=== PATIENT | female | born 1970 | race Caucasian/White ===

== ENCOUNTER 2016-12-24 12:20 | Emergency (ER) | payer BC ==
[~2016-12-24] VITALS: Ht 152.4 cm; Wt 68.0 kg
[~2016-12-24 12:20] MED LIST: CLIN1CAP5 PO; NAPR500 PO
[2016-12-24 12:24] VITALS: BP 146/93; PULSE 102; RESP 20; TEMP 98.5; O2SAT 98
[2016-12-24] MEDS ORDERED: AMOX500T PO (12:57)
[2016-12-24] MEDS ORDERED: CORT1SOL RIGHT EAR (12:57)
--- NOTE | 2016-12-24 12:57 | PD ---
HPI Chief Complaint: ENT Complaint Time Seen by Provider: 12:36 Travel History International Travel<30 days: No Contact w/Intl Traveler<30days: No Traveled to known affect area: No History of Present Illness HPI This 46-year-old female has multiple complaints. She's had a lump on the right side of her jaw for a while. She had a tooth infection took an antibiotic but hasn't completely resolved. She's been having some sinus congestion. She has a history of sinus infection and has had 2 surgeries on his sinuses. He also has some numbness in her hands. Both sides are affected and the numbness is somewhat intermittent and comes and goes. It can worsen last 2 weeks. She is on no medications. She has no history of thyroid disease. She has a history of cholecystectomy appendectomy and hysterectomy. He is having some pain in her right ear. She will is to wear headphones at work [employer] Past Medical History Cardiovascular Problems: Yes Diminished Hearing: No Tetanus Vaccination: Unknown Influenza Vaccination: No ?: Not Past Surgical History Appendectomy: Yes Cholecystectomy: Yes Hysterectomy: Yes Other Surgery: Yes (Salivary Stone removed, Deviated Septum) Social History Alcohol Use: No Tobacco Use: Yes (09/14 PPD) Substance Use: No Allergies-Medications (Allergen,Severity, Reaction): Coded Allergies: Beta Blockers (Verified Allergy, Intermediate, HALLUCINATIONS, 12/24/16) Celebrex (Verified Allergy, Intermediate, LEFT WRIST SWELLS, 12/24/16) Reported Meds & Prescriptions Reported Meds & Active Scripts Active Naprosyn (Naproxen) 500 Mg Tab 500 Mg PO Q12HR PRN Clindamycin (Clindamycin HCl) 150 Mg Cap 2 Tab PO Q6H 10 Days Review of Systems General / Constitutional: No: Fever, Chills Eyes: No: Diploplia HENT: Positive: Rhinitis, Earache Cardiovascular: No: Chest Pain or Discomfort, Palpitations Respiratory: No: Cough, Shortness of Breath Gastrointestinal: No: Vomiting, Diarrhea Genitourinary: No: Urgency, Frequency Musculoskeletal: No: Myalgias Psychiatric: No: Anxiety Hematologic/Lymphatic: No: Easy Bruising Physical Exam Narrative GENERAL: Well-developed female SKIN: Focused skin assessment warm/dry. HEAD: Atraumatic. Normocephalic. EYES: Pupils equal and round. No scleral icterus. No injection or drainage. ENT: No nasal bleeding or discharge. Mucous membranes pink and moist. Multiple teeth are missing. The first molar is carious and the adjacent gum is swollen. There is erythema of the nasal turbinates. There is erythema of the right ear canal small amount of exudate NECK: Trachea midline. No JVD. CARDIOVASCULAR: Regular rate and rhythm. No murmur appreciated. RESPIRATORY: No accessory muscle use. Clear to auscultation. Breath sounds equal bilaterally. GASTROINTESTINAL: Abdomen soft, non-tender, nondistended. Hepatic and splenic margins not palpable. MUSCULOSKELETAL: No obvious deformities. No clubbing. No cyanosis. No edema. NEUROLOGICAL: Awake and alert. No obvious cranial nerve deficits. Motor grossly within normal limits. Normal speech. Some diminished sensation on the left arm compared to the right. PSYCHIATRIC: Appropriate mood and affect; insight and judgment normal. Data Data Last Documented VS Vital Signs Date Time Temp Pulse Resp B/P Pulse Ox O2 Delivery O2 Flow Rate FiO2 12/24/16 12:24 98.5 102 20 146/93 98 MDM Medical Decision Making Medical Screen Exam Complete: Yes Emergency Medical Condition: Yes Medical Record Reviewed: Yes Differential Diagnosis Differential includes radiculopathy, neuropathy, sinusitis, Narrative Course Patient be placed on amoxicillin and Cortisporin for her ear infection Diagnosis Primary Impression: Acute sinusitis Qualified Code: J01.01 - Acute recurrent maxillary sinusitis Additional Impression: Right otitis externa Qualified Code: H60.501 - Acute otitis externa of right ear, unspecified type Scripts Rzesnoaq-Iutqvkhej-DI Otic Drops (Cortisporin HC Otic Drops)3.5-10,000-1 Mg- Units-% Soln4 Drop RIGHT EAR QID #1 BOTTLE Ref 0 Prov:Casa Robert MD 12/24/16 Amoxicillin 500 Mg [id number] Mg PO TID #30 TAB Ref 0 Prov:Casa Robert MD 12/24/16 Disposition: DISCHARGE HOME Condition: Stable Casa Robert MD Dec 24, 2016 12:57
== END 2016-12-24 13:22 | disposition home or self-care (01) ==
LOC: PHED 12:20
DX: J01.90 Acute sinusitis, unspecified (principal); H60.91 Unspecified otitis externa, right ear
CPT/HCPCS: 99283

== ENCOUNTER 2017-01-15 19:38 | Emergency (ER) | payer BC ==
[~2017-01-15] VITALS: Ht 152.4 cm; Wt 70.1 kg
[~2017-01-15 19:38] MED LIST changes: +AMOX500T PO; +CORT1SOL RIGHT EAR
[2017-01-15 19:42] VITALS: BP 162/105; PULSE 109; RESP 14; TEMP 98.4; O2SAT 100
[2017-01-15 20:45] VITALS: BP 163/103; PULSE 98; RESP 16; O2SAT 97
--- NOTE | 2017-01-15 20:49 | PD ---
HPI Chief Complaint: ENT Complaint Time Seen by Provider: 20:20 Travel History International Travel<30 days: No Contact w/Intl Traveler<30days: No Traveled to known affect area: No History of Present Illness HPI 46-year-old female presents to the emergency room for evaluation of right ear pain for the past one month. Patient was seen one month ago at onset symptoms and given Cipro otic drops as well as oral amoxicillin. She states upon finishing her antibiotics, she felt improvement but then her symptoms worsened. She denies dental pain. Ear pain radiates into her face. She has been taking ibuprofen for her pain. Patient also reports associated left ear pain which at one point felt like a pressure until it popped and a mild amount of blood came out. She reports chills but has not taken her temperature. No chronic medical conditions or daily medications. Patient also reports chronic bilateral wrist pain starting to radiate up to her elbows. She never followed up with a physician after her last visit to the ER. PFSH Past Medical History Medical History: Denies Significant Hx Cardiovascular Problems: Yes Diminished Hearing: No Tetanus Vaccination: > 5 Years Influenza Vaccination: No ?: Not Menopausal: Yes Past Surgical History Appendectomy: Yes Cholecystectomy: Yes Hysterectomy: Yes Other Surgery: Yes (Sinus X's 2, parotid gland SX) Social History Alcohol Use: No Tobacco Use: Yes (/2 PPD) Substance Use: No Allergies-Medications (Allergen,Severity, Reaction): Coded Allergies: Beta Blockers (Verified Allergy, Intermediate, HALLUCINATIONS, 01/15/17) Celebrex (Verified Allergy, Intermediate, LEFT WRIST SWELLS, 01/15/17) Reported Meds & Prescriptions Reported Meds & Active Scripts Active Augmentin (Amoxicillin-Clavulanate) 875-125 mg Tab 875 Mg PO BID 7 Days not for use in CrCl <30 ml/min. Review of Systems Except as stated in HPI: all other systems reviewed are Neg Physical Exam Narrative GENERAL: Well-nourished, well-developed female in no acute distress. Afebrile. Ambulatory. SKIN: Warm and dry. HEAD: Normocephalic. ENT: Mucosa pink and moist. No erythema or exudates. No uvular edema. No uvular , palatal, or tonsillar deviation. Airway patent. Nasal turbinates appear normal without nasal blood, purulent drainage or septal hematoma. EYES: No scleral icterus. No injection or drainage. DENTAL: Moderate decay throughout. EARS: Bilateral pinnae and external canals appear within normal limits. Left ear canal has dried blood. Bilateral tympanic membranes without erythema or perforation. Right tympanic membrane is dull. NECK: Supple, trachea midline. No JVD or lymphadenopathy. CARDIOVASCULAR: Regular rate and rhythm without murmurs, gallops, or rubs. RESPIRATORY: Breath sounds equal bilaterally. No accessory muscle use. Data Data Last Documented VS Vital Signs Date Time Temp Pulse Resp B/P Pulse Ox O2 Delivery O2 Flow Rate FiO2 01/15/17 20:45 98 16 163/103 97 Room Air 01/15/17 19:42 98.4 MDM Medical Decision Making Medical Screen Exam Complete: Yes Emergency Medical Condition: Yes Medical Record Reviewed: Yes Differential Diagnosis Otitis media versus otitis externa versus eustachian tube dysfunction versus dentalgia Narrative Course 46-year-old female presents to the emergency room for evaluation of right-sided ear pain for the past one month. Pain initially improved antibiotic therapy but worsened again 2 weeks ago. Pain is severe and radiates into her face. Denies any drainage from the right ear. She reports left ear pain last week with associated bloody drainage but that has since resolved. No objective fevers. Physical exam reveals scarring and dullness of the right tympanic membrane without perforation or evidence of infection. Left tympanic membrane is intact without evidence of infection. There is dried blood in the ear canal. Dentition is poor throughout with moderate decay. Patient was recently treated with amoxicillin and Cipro otic for sinusitis/ear infection. She will be given Augmentin. Patient was encouraged to follow up with a primary care physician and/or ENT and provided with information for the [facility]. Diagnosis Primary Impression: Otitis media Qualified Code: H66.016 - Recurrent acute suppurative otitis media with spontaneous rupture of both tympanic membranes Referrals: Primary Care Physician Patient Instructions: General Instructions, Otitis Media (ED) Additional Instructions: Rest and drink plenty of fluids. Take Augmentin as directed, until gone. Take ibuprofen with food as directed, as needed for pain. Follow-up with a primary care physician or ENT physician. Return to the emergency room for worsening symptoms. Med/Other Pt SpecificInfo: Prescription(s) given Scripts Amoxicillin-Clavulanate (Augmentin)875-125 mg [id number] Mg PO BID 7 Days Ref 0 not for use in CrCl <30 ml/min. Prov:Casa Robert MD 01/15/17 Disposition: 01 DISCHARGE HOME Condition: Stable Heather Sargent January 15, 2017 20:49
[2017-01-15] MEDS ORDERED: AUGM875T PO (20:50)
== END 2017-01-15 21:00 | disposition home or self-care (01) ==
LOC: PHEFT 19:38
DX: H66.91 Otitis media, unspecified, right ear (principal); F17.210 Nicotine dependence, cigarettes, uncomplicated
CPT/HCPCS: 99282

== ENCOUNTER 2017-05-29 13:54 | Emergency (ER) | payer SELFPAY ==
[~2017-05-29] VITALS: Ht 152.4 cm; Wt 66.0 kg
[~2017-05-29 13:54] MED LIST changes: -AMOX500T PO; +AUGM875T PO; -CLIN1CAP5 PO; -CORT1SOL RIGHT EAR; -NAPR500 PO
[2017-05-29 14:10] VITALS: BP 167/109; PULSE 106; RESP 16; TEMP 98.8; O2SAT 99
[2017-05-29] MEDS ORDERED: GABA300C5 PO (16:40)
[2017-05-29] MEDS ORDERED: OMEP40CA2 PO (16:40)
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
[2017-05-29] MEDS ORDERED: predniSONE 20 MG TAB PO ONE (17:00)
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
[2017-05-29] MEDS ORDERED: ACETAMINOPHEN/HYDROcodone 325 MG/5 MG TAB PO ONE (18:00)
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
[2017-05-29] MEDS ORDERED: TRAM50TA PO (18:35)
[2017-05-29] MEDS ORDERED: PRED20 PO (18:35)
[2017-05-29] MEDS ORDERED: CYCL1TAB29 PO (18:35)
[2017-05-29 19:17] VITALS: RESP 18
== END 2017-05-29 19:35 | disposition home or self-care (01) ==
LOC: PHED 13:54 → PHEFT 19:35
DX: S16.1XXA Strain of muscle, fascia and tendon at neck level, initial encounter (principal); X58.XXXA Exposure to other specified factors, initial encounter; Y93.11 Activity, swimming; Y92.832 Beach as the place of occurrence of the external cause
CPT/HCPCS: 72040; 72125; 99284; J7512

== ENCOUNTER 2018-02-24 17:25 | Emergency (ER) | payer SELFPAY ==
[~2018-02-24 17:25] MED LIST changes: -AUGM875T PO; +CYCL10TA PO; +GABA300C5 PO; +OMEP40CA2 PO; +PRED20 PO; +TRAM50TA PO
[2018-02-24 17:58] VITALS: BP 112/74; PULSE 107; RESP 17; TEMP 98.8; O2SAT 97
[2018-02-24] MEDS ORDERED: SODIUM CHLORIDE 0.9% FLUSH 10 ML FLUSH IVF PRN (18:45)
[2018-02-24 18:56] VITALS: PULSE 78; RESP 18; O2SAT 96
[2018-02-24] MEDS ORDERED: methylPREDNISolone SOD SUCC 125 MG/2 ML VIAL IV PUSH ONE (19:15)
--- NOTE | 2018-02-24 19:24 | RADRPT ---
EXAM DATE: 02/24/2018 7:16 PM EDT AGE/SEX: 47 years / Female INDICATIONS: Short of breath and chest pain. CLINICAL DATA: This is the patient's initial encounter. Patient reports that signs and symptoms have been present for 2 weeks and indicates a pain score of 6/10. MEDICAL/SURGICAL HISTORY: Asthma. Cholecystectomy. Appendectomy. Hysterectomy. Salivary glan d. Sinus. COMPARISON: No prior exams available for comparison. FINDINGS: PA and lateral views of the chest demonstrate the lungs to be symmetrically aerated without evidence of mass, infiltrate or effusion. The cardiomediastinal contours are unremarkable. Osseous structures are intact. CONCLUSION: No acute cardiopulmonary disease. Electronically signed by: Ramírez Gottlieb MD 02/24/2018 7:22 PM EDT
--- NOTE | 2018-02-24 19:27 | PD ---
HPI Chief Complaint: Chest Pain Time Seen by Provider: 18:16 Travel History International Travel<30 days: No Contact w/Intl Traveler<30days: No Traveled to known affect area: No History of Present Illness HPI 47-year-old female with PMH of asthma presents the ED for evaluation of 10 day history of central chest tightness, described as aching, radiating across the chest. Accompanied by shortness of breath, wheezing. Patient denies associated diaphoresis, nausea or vomiting. Patient is a current smoker. She endorses chronic, nonproductive cough. She denies recent overuse or injury to the area. She denies fever, chills, abdominal pain, dysuria. She treated at home with an inhaler with no improvement of symptoms. Denies recent period of immobility, oral contraception use. Denies history of PE, DVT. Endorses familial history of AK in her mother in early 50s. PFSH Past Medical History Cardiovascular Problems: Yes Diminished Hearing: No GERD: Yes Musculoskeletal: Yes Respiratory: Yes (ASTHMA) Immunizations Current: Yes ?: Not Menopausal: Yes Past Surgical History Appendectomy: Yes Cholecystectomy: Yes Hysterectomy: Yes Other Surgery: Yes (Sinus X's 2, parotid gland SX) Social History Alcohol Use: No Tobacco Use: Yes (1 PPD) Substance Use: No Allergies-Medications (Allergen,Severity, Reaction): Coded Allergies: acebutolol (Unverified Allergy, Intermediate, HALLUCINATIONS, 05/29/17) atenolol (Unverified Allergy, Intermediate, HALLUCINATIONS, 05/29/17) betaxolol (Unverified Allergy, Intermediate, HALLUCINATIONS, 05/29/17) carvedilol (Unverified Allergy, Intermediate, HALLUCINATIONS, 05/29/17) celecoxib (Unverified Allergy, Intermediate, LEFT WRIST SWELLS, 05/29/17) labetalol (Unverified Allergy, Intermediate, HALLUCINATIONS, 05/29/17) metoprolol (Unverified Allergy, Intermediate, HALLUCINATIONS, 05/29/17) nebivolol (Unverified Allergy, Intermediate, HALLUCINATIONS, 05/29/17) pindolol (Unverified Allergy, Intermediate, HALLUCINATIONS, 05/29/17) propranolol (Unverified Allergy, Intermediate, HALLUCINATIONS, 05/29/17) sotalol (Unverified Allergy, Intermediate, HALLUCINATIONS, 05/29/17) timolol (Unverified Allergy, Intermediate, HALLUCINATIONS, 05/29/17) Reported Meds & Prescriptions Reported Meds & Active Scripts Active Nebulizer Kit/Tubing/Mout (N/A) 1 Kit Kit Kit .XX DIRECTED Albuterol Neb (Albuterol Sulfate) 2.5 Mg/3 Ml Neb 2.5 Mg NEB Q6HR ALT NEB PRN Proair Hfa 8.5 GM Inh (Albuterol Sulfate) 90 Mcg/Act Aer 2 Puff INH Q4-6H PRN 108 mcg/actuation Prednisone 20 Mg Tab 20 Mg PO ONCE 5 Days Flexeril (Cyclobenzaprine HCl) 10 Mg Tab 10 Mg PO TID Reported Omeprazole 40 Mg Cap 40 Mg PO DAILY Gabapentin 300 Mg Cap 300 Mg PO TID Review of Systems Except as stated in HPI: all other systems reviewed are Neg Physical Exam Narrative GENERAL: Well-nourished, well-developed white female no acute distress. SKIN: Focused skin assessment warm/dry. HEAD: Normocephalic. EYES: No scleral icterus. No injection or drainage. NECK: Supple, trachea midline. No JVD or lymphadenopathy. CARDIOVASCULAR: Regular rate and rhythm without murmurs, gallops, or rubs. CHEST: Nontender throughout without deformity or crepitus. No retractions. RESPIRATORY: Breath sounds tight and wheezy equal bilaterally. No accessory muscle use. GASTROINTESTINAL: Abdomen soft, non-tender, nondistended. MUSCULOSKELETAL: No cyanosis, or edema. BACK: Nontender without obvious deformity. No CVA tenderness. Data Data Last Documented VS Vital Signs Date Time Temp Pulse Resp B/P (MAP) Pulse Ox O2 Delivery O2 Flow Rate FiO2 02/24/18 18:56 78 18 96 02/24/18 18:20 Room Air 02/24/18 17:58 98.8 112/74 (87) Orders Orders Electrocardiogram (02/24/18 ) Complete Blood Count With Diff (02/24/18 18:33) Comprehensive Metabolic Panel (02/24/18 18:33) D-Dimer (02/24/18 18:33) Magnesium (Mg) (02/24/18 18:33) Ckmb (Isoenzyme) Profile (02/24/18 18:33) Troponin I (02/24/18 18:33) Urinalysis - C+S If Indicated (02/24/18 18:33) Iv Access Insert/Monitor (02/24/18 18:33) Ecg Monitoring (02/24/18 18:33) Oximetry (02/24/18 18:33) Chest, Pa & Lat (02/24/18 18:33) Sodium Chloride 0.9% Flush (Ns Flush) (02/24/18 18:45) Ed Urine Pregnancytest Poc (02/24/18 18:33) Methylprednisolone So Succ Inj (Solumedr (02/24/18 19:15) Albuterol-Ipratropium Neb (Duoneb Neb) (02/24/18 19:15) Ed Discharge Order (02/24/18 21:20) Labs Laboratory Tests Test 02/24/18 19:35 02/24/18 19:54 White Blood Count 7.8 TH/MM3 Red Blood Count 4.67 MIL/MM3 Hemoglobin 14.6 GM/DL Hematocrit 42.8 % Mean Corpuscular Volume 91.7 FL Mean Corpuscular Hemoglobin 31.2 PG Mean Corpuscular Hemoglobin Concent 34.0 % Red Cell Distribution Width 15.9 % Platelet Count 241 TH/MM3 Mean Platelet Volume 8.8 FL Neutrophils (%) (Auto) 52.0 % Lymphocytes (%) (Auto) 29.0 % Monocytes (%) (Auto) 7.4 % Eosinophils (%) (Auto) 8.7 % Basophils (%) (Auto) 2.9 % Neutrophils # (Auto) 4.1 TH/MM3 Lymphocytes # (Auto) 2.3 TH/MM3 Monocytes # (Auto) 0.6 TH/MM3 Eosinophils # (Auto) 0.7 TH/MM3 Basophils # (Auto) 0.2 TH/MM3 CBC Comment DIFF FINAL Differential Comment D-Dimer Quantitative (PE/DVT) 0.23 MG/L FEU Blood Urea Nitrogen 20 MG/DL Creatinine 0.71 MG/DL Random Glucose 85 MG/DL Total Protein 7.0 GM/DL Albumin 4.0 GM/DL Calcium Level 8.6 MG/DL Magnesium Level 1.8 MG/DL Alkaline Phosphatase 59 U/L Aspartate Amino Transf (AST/SGOT) 8 U/L Alanine Aminotransferase (ALT/SGPT) 18 U/L Total Bilirubin 0.2 MG/DL Sodium Level 143 MEQ/L Potassium Level 3.7 MEQ/L Chloride Level 108 MEQ/L Carbon Dioxide Level 21.6 MEQ/L Anion Gap 13 MEQ/L Estimat Glomerular Filtration Rate 89 ML/MIN Total Creatine Kinase 56 U/L Troponin I LESS THAN 0.02 NG/ML Urine Color YELLOW Urine Turbidity CLEAR Urine pH 5.0 Urine Specific [place] 1.026 Urine Protein 30 mg/dL Urine Glucose (UA) NEG mg/dL Urine Ketones 20 mg/dL Urine Occult Blood NEG Urine Nitrite NEG Urine Bilirubin NEG Urine Leukocyte Esterase NEG Urine RBC 4 /hpf Urine WBC 2 /hpf Urine Squamous Epithelial Cells 4 /hpf Urine Calcium Oxalate Crystals OCC /hpf Microscopic Urinalysis Comment CULT NOT INDICATED MDM Medical Decision Making Medical Screen Exam Complete: Yes Emergency Medical Condition: Yes Differential Diagnosis Asthma exacerbation versus pneumonia versus Narrative Course 47-year-old female with PMH of asthma presents the ED for evaluation of 10 day history of central chest tightness, described as aching, radiating across the chest. Accompanied by shortness of breath, wheezing. Patient is a current smoker. Denies recent period of immobility, oral contraception use. Denies history of PE, DVT. Endorses familial history of AK in her mother in early 50s. Vitals reviewed. O2 sats 97% on room air, respiratory rate 17, pulse 107 on arrival. Pulse improves in the exam room. On exam this is a nontoxic- appearing white female, no extra work of breathing. No reproducible chest pain. No appreciable M/R/G. Breath sounds are tight and wheezy bilaterally. IV was established. Patient was administered IV Solu-Medrol and duo nebs 3. EKG rate 90, sinus rhythm. TN interval 156, QRS 76, QTc 410 ms. Normal axis. No acute ST changes. Reviewed by Dr. Sen. CXR: No acute cardiopulmonary disease. Cardiac enzymes negative 1. CBC unremarkable. CMP without concerning abnormalities. No culture indicated of the UA. D-dimer 0.23. Low risk for PE via Well's criteria. I discussed the patient, evaluation and care plan with Dr. Sen who is in agreement. On recheck patient reports improvement of her breathing symptoms. I offered the patient observation admission in the chest pain center. She declines. I explained that the patient has several risk factors and that she should seek outpatient cardiac evaluation. She is prescribed a short course of steroids, refill for her pro-air inhaler, albuterol treatments and a nebulizer. She is instructed to follow-up with the primary care and cardiology. She indicated understanding of the instructions. She is agreeable to care plan. Patient is stable and discharged home. Diagnosis Primary Impression: Asthma exacerbation Qualified Codes: J45.901 - Unspecified asthma with (acute) exacerbation Referrals: [facility] Additional Instructions: Rest, hydrate. Resume normal, gentle activities as tolerated. Continue with daily antihistamines as previously prescribed. Begin steroids tomorrow and take them as prescribed until every dose is gone. Rescue inhaler as needed for shortness of breath. Alternatively you may use the nebulizer as prescribed. As we discussed you have risk factors for cardiac disease. Follow-up with the work force advisor on outpatient basis for further evaluation. Follow-up with the [facility] clinic to establish primary care. Return to the ED for worsening symptoms or any urgent or emergent medical condition. Med/Other Pt SpecificInfo: Prescription(s) given Scripts Nebulizer Kit/Tubing/Mout (Nebulizer Kit/Tubing/Mout) 1 Kit Kit KIT .XX DIRECTED for Breathing Treatment, #1 0 Refills Prov: Phill Vigil DO 02/24/18 Albuterol Neb (Albuterol Neb) 2.5 Mg/3 Ml Neb 2.5 MG NEB Q6HR ALT NEB Y for SHORTNESS OF BREATH, #60 NEBULE 0 Refills Prov: Phill Vigil DO 02/24/18 Albuterol 8.5 GM Inh (Proair Hfa 8.5 GM Inh) 90 Mcg/Act Aer 2 PUFF INH Q4-6H Y for SHORTNESS OF BREATH, #1 INHALER 0 Refills 108 mcg/actuation Prov: Phill Vigil DO 02/24/18 Prednisone (Prednisone) 20 Mg Tab 20 MG PO ONCE for 5 Days, #1 TAB 0 Refills Prov: Phill Vigil DO 02/24/18 Diane Yoo Feb 24, 2018 19:27
[2018-02-24] MEDS: RESP: ALBUTEROL 2.5 MG/IPRATROPIUM 0.5 MG NEB (SCH) INH (19:46)
[2018-02-24 19:58] LABS: AUTOMATED NEUTROPHIL # 4.1 TH/MM3 (1.8-7.7); BASOPHIL # 0.2 TH/MM3 (0-0.2); BASOPHIL % 2.9 % (0.0-2.0); EOSINOPHIL # 0.7 TH/MM3 (0-0.4); EOSINOPHIL % 8.7 % (0.0-4.0); HEMATOCRIT 42.8 % (35.0-46.0); HEMOGLOBIN 14.6 GM/DL (11.6-15.3); LYMPHOCYTE # 2.3 TH/MM3 (1.0-4.8); MEAN CELL VOLUME 91.7 FL (80.0-100.0); MEAN CORPUSCULAR HEMOGLOBIN 31.2 PG (27.0-34.0); MEAN PLATELET VOLUME 8.8 FL (7.0-11.0); MONO % 7.4 % (0.0-8.0); MONOCYTE # 0.6 TH/MM3 (0-0.9); PLATELET COUNT 241 TH/MM3 (150-450); RED BLOOD COUNT 4.67 MIL/MM3 (4.00-5.30); RED CELL DISTRIBUTION WIDTH 15.9 % (11.6-17.2); WHITE BLOOD COUNT 7.8 TH/MM3 (4.0-11.0)
[2018-02-24 20:38] LABS: ALT (GPT) 18 U/L (10-53); BICARBONATE 21.6 MEQ/L (21.0-32.0); CALCIUM 8.6 MG/DL (8.5-10.1); CHLORIDE 108 MEQ/L (98-107); CREATININE 0.71 MG/DL (0.50-1.00); GLOMERULAR FILTRATION RATE 89 ML/MIN (>89); GLUCOSE,RANDOM 85 MG/DL (74-106); MAGNESIUM 1.8 MG/DL (1.5-2.5); SODIUM (NA) 143 MEQ/L (136-145)
[2018-02-24 20:49] LABS: ALKALINE PHOSPHATASE 59 U/L (45-117); AST (GOT) 8 U/L (15-37); BLOOD UREA NITROGEN 20 MG/DL (7-18); TOTAL BILIRUBIN ADULT 0.2 MG/DL (0.2-1.0); TROPONIN I LESS THAN 0.02 NG/ML (0.02-0.05)
--- NOTE | 2018-02-24 20:49 | EKG ---
Date Performed: 02/24/2018 Time Performed: 18:26:03 PTAGE: 47 years EKG: Sinus rhythm NORMAL ECG NO PREVIOUS TRACING DOCTOR: Deniz Guillen Interpretating Date/Time 02/24/2018 20:48:00
[2018-02-24 21:01] LABS: BILIRUBIN, URINE NEG (NEG); BLOOD, URINE NEG (NEG); CALCIUM OXALATE CRYSTALS,URINE OCC /hpf; GLUCOSE,URINE NEG (NEG); KETONE, URINE 20 mg/dL (NEG); NITRITE,URINE NEG (NEG); SQUAMOUS EPITHELIAL CELL URINE 4 /hpf (0-5); URINE COLOR YELLOW (YELLW/STRAW); URINE LEUKOCYTE ESTERASE NEG (NEG)
[2018-02-24] MEDS ORDERED: ALBUAER3 INH (21:29)
[2018-02-24] MEDS ORDERED: PRED20 PO (21:29)
[2018-02-24] MEDS ORDERED: ALBU0.08 NEB (21:29)
[2018-02-24] MEDS ORDERED: NEBUKIT5 ×2 (21:29→21:30)
== END 2018-02-24 22:44 | disposition home or self-care (01) ==
LOC: NEPC 17:25
DX: J45.901 Unspecified asthma with (acute) exacerbation (principal); K21.9 Gastro-esophageal reflux disease without esophagitis; F17.210 Nicotine dependence, cigarettes, uncomplicated; Z88.8 Allergy status to other drugs, medicaments and biological substances; Z79.899 Other long term (current) drug therapy
CPT/HCPCS: 71046; 80053; 81001; 82550; 83735; 84484; 84703; 85025; 85379; 93005; 94640; 94664; 96374; 99285; J2930